=== PATIENT | male | born 1940 | race Caucasian/White ===

== ENCOUNTER 2017-02-01 07:47 | Outpatient (CLI) | payer MEDICARE, BC ==
[~2017-02-01] VITALS: Ht 180.3 cm; Wt 109.1 kg
--- NOTE | ~2017-02-01 | OP ---
PATIENT NAME: ANTONIETA UREÑA MEDICAL RECORD: [id number] :38 LOCATION:D.CAT ADMISSION DATE: SURGEON: GENEVIEVE YARBROUGH MD DATE OF OPERATION: 02/01/2017 PROCEDURES: 1. Left heart catheterization. 2. Selective coronary angiography. 3. Left ventriculogram. INDICATION: Angina and coronary artery disease. PROCEDURE IN DETAIL: After informed consent was obtained and after detailed explanation of risks, benefits as well as alternative therapies, the patient elected to proceed with angiogram and heart catheterization. The right radial area was prepped and draped in normal sterile fashion. Right radial artery was cannulated via modified Seldinger technique with placement of 6-Northern Irish sheath. All catheters exchanged through this sheath. FINDINGS: Left ventriculogram was performed in standard 30-degree SANDOVAL view, reveals good cardiac wall motion throughout all segments. Overall ejection fraction estimated at 55-60%. SELECTIVE CORONARY ANGIOGRAPHY: 1. The left main has no significant angiographic disease. 2. The left anterior descending has a long area of 80-90% stenosis proximally. The distal vessel has a good lumen suitable for grafting. 3. The left circumflex has long area of 80-90% stenosis proximally. The distal vessel has a good lumen suitable for grafting. 4. The right coronary has multiple areas of 90% blockage in the proximal and mid vessel. The distal PDA has a good lumen suitable for grafting. OVERALL IMPRESSION: Severe proximal disease of all 3 vessels with good distal targets and preserved left ventricular function. Evaluate for bypass surgery. TRANSINT:[id number] Voice Confirmation ID: [id number] DOCUMENT ID: [id number] GENEVIEVE YARBROUGH MD CC: [id number] DICTATION DATE: 02/01/17 1111 HEAD OF ACQUISITIONS: 02/01/17 1219 REG [facility] [address] [id number]
--- NOTE | ~2017-02-01 | HEMODYNAMI ---
PATIENT:ANTONIETA UREÑA MEDICAL RECORD: [id number] : 38 LOCATION:[facility] ADMISSION DATE: 02/01/17 Generatedon:02/01/201711:12 Patient name: ANTONIETA UREÑA Patient #: [id number] SSN: : 1940 Date of study: 02/01/2017 Page: Of Hemodynamic Procedure Report Patient Data Patient Demographics Procedure consent was obtained First Name: ANTONITEA Gender: Male Last Name: NIRANJAN : 1940 [facility] Initial: APRIL Age: 76 year(s) Patient #: [id number] Race: Unknown Additional ID: [id number] Contact details Address: [address] [place] [address] [address]IVE State: [place] City: [facility] Zip code: [address] Past Medical History Performed procedures and imaging results Date Procedure Procedure Results Comments 01/26/2017 Stress testing Positive->Intermediate anterior, with SPECT MPI risk mixed defect inferior Allergies Allergen Reaction Date Comments Reported Other allergy 02/01/2017 Pravastatin Admission Admission Data Admission Date: 02/01/2017 Admission Time: 7:47 Height (in.): 71 BSA: 2.28 (m2) Height (cm.): 180.34 BMI: 33.47 (kg/m2) Weight (lbs.): 240 Weight (kg.): 108.86 Lab Results Lab Result Date: 02/01/2017 Lab Result Time: 0:00 Biochemistry Name Units Result Min Max BUN mg/dl 20 --(----)*- 7 18 CK-MB ng/ml 1.6 --(-*--)-- 0 3.6 Creatinine mg/dl 0.9 --(-*--)-- 0.6 1.3 Creatinine l 80 --(-*--)-- 21 215 Kinase Troponin l ng/ml 0.017 --(-*--)-- 0 0.06 CBC Name Units Result Min Max Hemoglobin g/dl 16.3 --(--*-)-- 13.5 17.5 Procedure Procedure Types Cath Procedure Diagnostic Procedure [facility] w/Coronaries Miscellaneous Procedures Moderate Sedation up to 15 minutes Procedure Description Procedure Date Procedure Date: 02/01/2017 Procedure Start Time: 11:03 Procedure End Time: 11:11 Procedure Staff Name Function Colby Vivas MD Performing Physician Yesenia Garber RN Nurse Luis Hannah RT Monitor Memo Her RT Scrub Tesfaye Paz RN Nurse Procedure Data Cath Procedure Fluoroscopy Diagnostic fluoroscopy Total fluoroscopy Time: 2.6 time: 2.6 min min Diagnostic fluoroscopy Total fluoroscopy dose: 603 dose: 603 mGy mGy Contrast Material Contrast Material Type Amount (ml) Isovue 300 63 Entry Location Entry Primary Successful Side Size Upsize Upsize Entry Closure Flores ccessful Closure Location (Fr) 1 (Fr) 2 (Fr) Remarks Device Remarks Radial Right 6 Fr Mechanical artery Short Compression Diagnostic catheters Device Type Used For End Catheter Placement Diagnostic Terumo 5Fr LV Angiography Elrosa 110cm catheter Procedure Complications No complications Procedure Medications Medication Administration Route Dosage Oxygen NC 2 l/min Lidocaine 2% added to field 20 Heparin Flush Bag added to field 2 bags (1000units/500ml NS) 0.9% NaCl I.V. 100 ml/hr Versed I.V. 1 mg Fentanyl I.V. 50 mcg Radial Cocktail I.A. 1 syringe (Verapomil 2mg/Nitro 400mcg/Heparin 1500units) Versed I.V. 1 mg Fentanyl I.V. 50 mcg Versed I.V. 1 mg Fentanyl I.V. 50 mcg Hemodynamics Rest BSA: 2.28 (m2) HGB: 16.3 (g/dl) O2 Consumption: Estimated: 253.64 (ml/min) O2 Co nsumption indexed: Estimated:111.25 (ml/min/m) Heart Rate: 61 (bpm) Snapshots Pre Cath Intra NCS Post Cath Vital Signs Time Heart Resp SPO2 NIBP (mmHg) Rhythm Pain Sedation Rate (ipm) (%) Status Level (bpm) 10:49:58 63 17 99 140/88(128) Paced 0 (11) 10(A) , No pain 10:54:14 60 17 100 119/78(97) Paced 0 (11) 10(A) , No pain 10:58:22 60 18 97 120/74(96) Paced 0 (11) 10(A) , No pain 11:02:34 60 15 96 114/63(88) Paced 0 (11) 9(A) , No pain 11:06:40 60 15 99 116/72(99) Paced 0 (11) 9(A) , No pain 11:10:50 59 16 98 109/65(98) Paced 0 (11) 10(A) , No pain Medications Time Medication Route Dose Verified Delivered Reason Notes Effectiveness by by 10:50:07 Oxygen NC 2 l/min Colby Buffie used for Ortega Paz RN procedure 10:50:14 Lidocaine 2% added 20ml Colby Colby for local to vial Ortega Vivas MD anesthetic field 10:50:19 Heparin Flush added 2 bags Colby Bowman used for Bag to Ortega Vivas MD procedure (1000units/500ml field NS) 10:50:27 0.9% NaCl I.V. 100 Colby Buffie Per ml/hr Ortega Paz RN physician 11:00:59 Versed I.V. 1 mg Colby Conteie for sedation Ortega Paz RN 11:01:06 Fentanyl I.V. 50 mcg Colby Carlin for sedation Ortega Paz RN 11:01:19 Radial Cocktail I.A. 1 Colby Colby for (Verapomil syringe Ortega Vivas MD vasodilation 2mg/Nitro 400mcg/Heparin 1500units) 11:03:26 Versed I.V. 1 mg Colby Buffie for sedation Ortega Paz RN 11:03:30 Fentanyl I.V. 50 mcg Colby Carlin for sedation Ortega Paz RN 11:06:07 Versed I.V. 1 mg Colby Buffie for sedation Ortega Paz RN 11:06:11 Fentanyl I.V. 50 mcg Colby Buffie for sedation Ortega Paz RN Procedure Log Time Note 10:21:02 Luis Hannah RT(R) sent for patient. Start room use. 10:21:02 Time tracking: Regular hours 10:21:06 Plan of Care:Hemodynamics will remain stable., Cardiac rhythm will remain stable., Comfort level will be maintained., Respiratory function will remain adequate., Patient/ family verbilizes understanding of procedure., Procedure tolerated without complication., Recovers from procedure without complications.. 10:29:57 H&P Date Dictated: 01/13/2017 Within 30 days and on chart., H&P Addendum completed by physician on day of procedure. (MUST COMPLETE FOR ALL OUTPATIENTS). 10:30:30 Patient allergic to Other allergyPravastatin 10:37:53 Patient received from Pre/Post Procedure Room to CCL 2 Alert and oriented. Tansferred to table in Supine position. 10:37:54 Warm blankets applied, and marguerite hugger turned on for patient comfort. 10:37:54 Correct patient and procedure confirmed by team. 10:37:55 Signed procedure consent form obtained from patient. 10:37:56 ECG and BP/O2 sat monitors applied to patient. 10:48:53 Vital chart was started 10:50:07 Oxygen 2 l/min NC was administered by Tesfaye Paz RN; used for procedure; 10:50:14 Lidocaine 2% 20ml vial added to field was administered by Colby Vivas MD; for local anesthetic; 10:50:19 Heparin Flush Bag (1000units/500ml NS) 2 bags added to field was administered by Colby Vivas MD; used for procedure; 10:50:27 0.9% NaCl 100 ml/hr I.V. was administered by Tesfaye Paz RN; Per physician; 10:53:27 Baseline sample Acquired. 10:53:29 Rhythm: sinus rhythm 10:53:30 Full Disclosure recording started 10:53:31 Pre-procedure instructions explained to patient. 10:53:31 Pre-op teaching completed and patient verbalized understanding. 10:53:33 Family unavailable. 10:53:38 Patient NPO since Midnight. 10:53:40 Is the patient allergic to Iodine/contrast media? No. 10:53:42 Is patient on blood thinner?Yes 10:53:44 ACC The patient was administered the following blood thiners within the last 24 hours: ACCPlavix 10:53:46 Patient diabetic? No. 10:53:47 ----Pre-sedation anethsthesia assessment.---- 10:53:49 Previous problem with sedation/anesthesia? N/A ? 10:53:50 Previous problem with sedation/anesthesia? No ? 10:53:52 Snore? Yes 10:53:53 Sleep apnea? No 10:53:56 Deviated septum? No 10:53:58 Opens mouth fully? Yes 10:53:59 Sticks out tongue? Yes 10:54:01 Airway obstruction? No ? 10:54:02 Dentures? No ? 10:54:05 Pre procedure: right dorsailis pedis pulse 1+ Palpable, but thready & weak; easily obliterated 10:54:07 Modified Naveen's test Ulnar > 7 seconds. 10:54:09 Patient pain scale 0/10 ?. 10:54:16 IV patent on arrival in left antecubital with 0.9% NaCl at 10ml/hr. 10:55:08 Lab Result : BUN 20 mg/dl 10:55:08 Lab Result : Creatinine 0.9 mg/dl 10:55:08 Lab Result : CK-MB 1.6 ng/ml 10:55:08 Lab Result : Creatinine Kinase 80 l 10:55:08 Lab Result : Hemoglobin 16.3 g/dl 10:55:08 Lab Result : Troponin l 0.017 ng/ml 10:55:11 Lab results completed and on chart. 10:55:15 Right Radial & Right Groin area was prepped with chlora-prep and draped in sterile fashion 10:55:18 Alarms reviewed by R. N. 10:55:20 Sharps counted by scrub and verified by R.N. 10:58:41 --------ALL STOP TIME OUT------ 10:58:41 Final Timeout: patient, procedure, and site verified with staff and physician. All members of the team are in agreement. 10:58:43 Right Radial & Right Groin site verified by team. 10:58:46 Physical assessment completed. ASA score P 2 - A patient with mild systemic disease as per Colby Vivas MD. 10:58:49 Sedation plan: IV Moderate Sedation Versed, Fentanyl 10:59:05 Patient Height : 180.34 cm 10:59:08 Patient Weight : 108.86 kg 10:59:11 Use device set Radial Dx 10:59:12 Acist Syringe opened to sterile field. 10:59:13 Bag Decanter opened to sterile field. 10:59:13 Terumo 6Fr Slender Glidesheath opened to sterile field. 10:59:14 St Darryn 260cm J .035 wire opened to sterile field. 10:59:14 Acist Hand Control opened to sterile field. 10:59:14 Acist Manifold opened to sterile field. 10:59:15 Tegaderm 4 x 4 opened to sterile field. 10:59:15 MBrace Wrist Support opened to sterile field. 10:59:16 Medline Cath Pack opened to sterile field. 11:00:59 Versed 1 mg I.V. was administered by Tesfaye Paz RN; for sedation; 11:01:06 Fentanyl 50 mcg I.V. was administered by Tesfaye Paz RN; for sedation; 11:01:19 Radial Cocktail (Verapomil 2mg/Nitro 400mcg/Heparin 1500units) 1 syringe I.A. was administered by Colby Vivas MD; for vasodilation; 11:02:46 Procedure started. 11:03:04 Zero performed for pressure channel P1 11:03:17 Local anesthetic to right radial artery with Lidocaine 2% by Colby Vivas MD.INITIAL ACCESS ONLY 11:03:24 A 6 Fr Short sheath was inserted into the Right Radial artery 11:03:26 Versed 1 mg I.V. was administered by Tesfaye Paz RN; for sedation; 11:03:30 Fentanyl 50 mcg I.V. was administered by Tesfaye Paz RN; for sedation; 11:03:35 A Diagnostic Ticies 5Fr Elrosa 110cm catheter was advanced over the wire and used for LV Angiography. 11:03:39 LV angiography performed. 11:04:29 EF : 55 % 11:04:34 LV gram done using SANDOVAL 11:04:38 Injector settings: Ml/sec: 7, Volume: 15, 11:04:49 RCA angiography performed. 11:05:15 Catheter removed. 11:06:03 Cordis 6FR XBLAD 3.5 guide catheter opened to sterile field. 11:06:07 Versed 1 mg I.V. was administered by Tesfaye Paz RN; for sedation; 11:06:11 Fentanyl 50 mcg I.V. was administered by Tesfaye Paz RN; for sedation; 11:06:23 6 Fr XBLAD 3.5 guide catheter was inserted over the wire 11:06:32 LCA angiography performed. 11:07:24 Catheter removed. 11:07:30 Contrast amount:Isovue 300 63ml. 11:07:40 Sheath removed intact; hemostasis achieved with Mechanical Compression to the Right Radial artery. 11:07:50 Terumo TR Band Standard opened to sterile field. 11:07:55 Procedure ended.(Physican Out) 11:08:16 Fluoroscopy time 02.60 minutes. 11::26 Fluoroscopy dose: 603 mGy 11:: Flurop Dose total: 603 11::28 Sharps counted by scrub and verified by R.N. 11:09:30 TR band inflated with 10cc of air. 11:09:32 Insertion/operative site no bleeding no hematoma. 11:10:21 Post right radial artery:stable 11:10:23 Post Procedure Pulses reassessed and unchanged 11:10:25 Post procedure: right dorsailis pedis pulse 1+ Palpable, but thready & weak; easily obliterated. 11:10:28 Post procedure rhythm: sinus rhythm 11:10:29 Post procedure instruction explained to patient.Patient verbalizes understanding. 11:10:53 Procedure and supply charges have been captured, reviewed, submitted and are correct. 11:11:13 Procedure Complication : No complications 11:11:15 Vital chart was stopped 11:11:16 See physician's report for complete and final results. 11:11:18 Report given to Pre/Post Procedure Room. 11:11:22 Patient transfered to Pre/Post Procedure Room with Stretcher. 11:11:23 Procedure ended. 11:11:23 Full Disclosure recording stopped 11::28 End room use (Document Last) Device Usage Item Name Manufacture Quantity Catalog Hospital Part Current Minimal Lot# / Number Charge Number Stock Stock Serial# Code Acist Acist 1 31943 909321 391678 517709 20 Syringe Medical Systems Inc Bag Microtek 1 2001S 001401 66880 497129 5 Decanter [employer] Inc. Terumo 6Fr Terumo 1 [id number] 184215 149802 147722 [address] Darryn 1 471223 722624 018860 183534 30 260cm J .035 wire Acist Hand Acist 1 69200 100755 471560 046316 5 Control Medical Systems Inc Acist Acist 1 36493 888001 230363 254627 5 Manifold Medical Systems Inc Tegaderm 4 3M 1 1626W 410703 262930 032874 5 x 4 MBrace Advanced 1 140-0250-00 267064 80835 724314 5 Wrist Vascular Support Dynamics Medline Cardinal 1 [id number] 112095 64965 117419 5 Cath Pack Health Diagnostic Terumo 1 66-1906 175873 158170 510686 5 Terumo 5Fr Elrosa 110cm catheter Cordis 6FR Cardinal 1 [id number] 609030 410422 669426 10 XBLAD 3.5 Health guide catheter Terumo TR Terumo 1 [id number] 915504 309850 418057 40 Band Standard Signature Audit [place] Stage Time Signature Unsigned Intra-Procedure 02/01/2017 Luis Hannah 11:12:34 AM RT(R) Signatures Monitor : Luis Hannah RT Signature : Date : Time : [id number] [place] [address]
[2017-02-01] MEDS ORDERED: BAYER CHEWABLE81 MG PO (08:25)
[2017-02-01] MEDS ORDERED: NIASPAN500 MG PO (08:25)
[2017-02-01] MEDS ORDERED: OMEGA 3 FISH OI1 CAP PO (08:25)
[2017-02-01 08:26] VITALS: BP 126/70; Ht 180.3 cm; Wt 109.1 kg
[2017-02-01] MEDS ORDERED: ALPHAGAN 0.2%5 ML EACH EYE (08:40)
[2017-02-01] MEDS ORDERED: XALATAN 0.0052.5 ML EACH EYE (08:40)
[2017-02-01 08:46] LABS: BASOPHILS 0.4 % (0-2); EOSINOPHILS 5.7 % (0-7); HEMATOCRIT 47.3 % (42.0-54.0); HEMOGLOBIN 16.3 g/dL (13.5-17.5); LYMPHOCYTES 19.8 % (15-50); MCH 30.3 pg (26.0-34.0); MCHC 34.5 g/dL (31.0-37.0); MCV 87.9 fL (80.0-100.0); MEAN PLATELET VOLUME 9.9 fL (7.4-10.4); NEUTROPHILS 67.1 % (40-80); PLATELET COUNT 185 10x3/uL (130-400); RBC 5.38 10x6/uL (4.20-6.10); RDW 12.9 % (11.5-14.5); WBC 6.7 10x3/uL (4.8-10.8)
[2017-02-01 09:12] LABS: CALC OSMOLALITY 279 mosm/kg (275-300); CALCIUM 8.7 mg/dL (8.5-10.1); CHLORIDE - SERUM 102 mmol/L (98-107); CKMB 1.6 U/L (0.0-3.6); CREATINE KINASE 80 UL (21-232); CREATININE - SERUM 0.9 mg/dL (0.6-1.3); GLUCOSE 109 mg/dL (74-106); POTASSIUM - SERUM 4.1 mmol/L (3.5-5.1); SODIUM 138 mmol/L (136-145); UREA NITROGEN 20 mg/dL (7-18); eGFR NON AFRICAN AMERICAN 87 mL/min (90-120)
[2017-02-01 09:14] LABS: TROPONIN-I < 0.017 ng/mL (0.000-0.060)
--- NOTE | 2017-02-01 11:39 | NUR ---
1130 RECEIVED PT FROM [employer] ADMINISTRATOR, PT IS SLEEPY, AWAKENS EASILY AND DENIES ANY C/O. TR BAND CDI TO RIGHT WRIST. FINGERS WARM, CAP REFILL IS BRISK. NO FAMILY AT BEDSIDE. CALL LIGHT IN REACH.
--- NOTE | 2017-02-01 11:50 | NUR ---
1145 TR BAND CDI, NO BLEEDING OR HEMATOMA NOTED. PT DENIES ANY C/O. AT BEDSIDE. CALL LIGHT IN REACH. 1150 SHANAE MCCLURE RN HERE ROUNDING ON PT FOR DR AGRAWAL.
--- NOTE | 2017-02-01 12:20 | NUR ---
1210 2 CC OF AIR REMOVED FROM TR BAND WITH NO BLEEDING OR HEMATOMA NOTED.
--- NOTE | 2017-02-01 12:39 | NUR ---
2 CC AIR REMOVED FROM TR BAND WITH NO BLEEDING NO HEMATOMA NOTED WILL MONITOR
--- NOTE | 2017-02-01 13:54 | NUR ---
1300 TR BAND HAS BEEN REMOVED AND 2X2 GAUZE/TEGADERM APPLIED. NO BLEEDING OR HEMATOMA NOTED AT SITE. IV DC'D WITH CATH INTACT AND PT IS DRESSING FOR DC TO HOME. 1320 REVIEWED DC INSTRUCTIONS WITH PT AND WHO VERBALIZE UNDERSTANDING. WRITTEN COPIES PROVIDED. PT DENIES ANY C/O UPON DC. PT ESCORTED TO PRIVATE AUTO VIA WC BY STAFF WITH DRIVING HIM HOME.
== END 2017-02-01 13:20 | disposition home or self-care (01) ==
LOC: D.CATH 07:47
PROVIDERS: Internal Medicine Interventional Cardiology
DX: I65.23 Occlusion and stenosis of bilateral carotid arteries (principal); Z01.812 Encounter for preprocedural laboratory examination

== ENCOUNTER → 2017-02-03 14:48 | Outpatient (CLI) | payer MEDICARE, BC ==
[2017-02-01 08:26] VITALS: BMI 33.5
[~2017-02-03 14:48] MED LIST: ALPHAGAN 0.2%5 ML EACH EYE; BAYER CHEWABLE81 MG PO; NIASPAN500 MG PO; OMEGA 3 FISH OI1 CAP PO; XALATAN 0.0052.5 ML EACH EYE
== END | disposition home or self-care (01) ==
LOC: D.LAB 14:45 → D.US 15:00
DX: I65.23 Occlusion and stenosis of bilateral carotid arteries (principal); Z01.812 Encounter for preprocedural laboratory examination

== ENCOUNTER → 2017-02-08 08:10 | Outpatient (CLI) | payer MEDICARE, BC ==
[2017-02-01 08:26] VITALS: BMI 33.5
== END | disposition home or self-care (01) ==
LOC: D.CT 08:10
DX: I65.23 Occlusion and stenosis of bilateral carotid arteries (principal)

== ENCOUNTER 2017-02-17 05:47 | Inpatient (IN) | payer MEDICARE, BC ==
[2017-02-12 11:09] LABS: BASOPHILS 0.6 % (0-2); EOSINOPHILS 4.5 % (0-7); HEMOGLOBIN 15.8 g/dL (13.5-17.5); IMMATURE GRANULOCYTES 0.3 % (0-5); LYMPHOCYTES 20.2 % (15-50); MCH 30.2 pg (26.0-34.0); MCHC 34.3 g/dL (31.0-37.0); MCV 87.8 fL (80.0-100.0); MEAN PLATELET VOLUME 9.7 fL (7.4-10.4); MONOCYTES 6.5 % (2-11); NEUTROPHILS 67.9 % (40-80); PLATELET COUNT 185 10x3/uL (130-400); RBC 5.24 10x6/uL (4.20-6.10); WBC 6.9 10x3/uL (4.8-10.8)
[2017-02-12 11:25] LABS: APTT 29.1 SECONDS (22.8-39.4); PROTIME 13.1 SECONDS (11.6-15.0)
[2017-02-12 11:41] LABS: ALBUMIN 4.2 g/dL (3.4-5.0); ALKALINE PHOSPHATASE 74 U/L (46-116); ALT (SGPT) 29 U/L (10-68); CALC OSMOLALITY 278 mosm/kg (275-300); CALCIUM 8.8 mg/dL (8.5-10.1); CARBON DIOXIDE 24.4 mmol/L (21.0-32.0); CHLORIDE - SERUM 105 mmol/L (98-107); CHOLESTEROL, TOTAL 205 mg/dL (0-200); CREATININE - SERUM 0.9 mg/dL (0.6-1.3); GLUCOSE 87 mg/dL (74-106); PHOSPHOROUS 3.5 mg/dL (2.5-4.9); POTASSIUM - SERUM 4.1 mmol/L (3.5-5.1); PROTEIN - SERUM 7.6 g/dL (6.4-8.2); SODIUM 139 mmol/L (136-145); T4 THYROXIN - FREE 0.84 ng/dL (0.76-1.46); THYROID STIMULATING HORMONE 3.76 uIU/mL (0.36-3.74); UREA NITROGEN 19 mg/dL (7-18); URIC ACID 6.4 mg/dL (2.6-7.2); eGFR NON AFRICAN AMERICAN 87 mL/min (90-120)
[2017-02-12 12:15] LABS: APPEARANCE HAZY (CLEAR); BILIRUBIN NEGATIVE (NEGATIVE); COLOR YELLOW (YELLOW); EPITHELIAL CELLS RARE /hpf (0-5); GLUCOSE NEGATIVE (NEGATIVE); KETONE NEGATIVE (NEGATIVE); LEUKOCYTE ESTERASE TRACE (NEGATIVE); NITRITE NEGATIVE (NEGATIVE); PROTEIN NEGATIVE (NEGATIVE); SPECIFIC GRAVITY 1.015 (1.005-1.020); UROBILINOGEN NORMAL (NORMAL); WHITE CELLS - URINE OCC /hpf (0-5)
[2017-02-12 12:16] LABS: BACTERIA FEW /hpf (NONE SEEN); MUCUS <1+ /lpf (NONE SEEN)
[2017-02-12 12:19] LABS: HEMOGLOBIN A1C 5.4 % (4.8-6.0)
[2017-02-12 12:57] LABS: COLD SCREEN @ 4 DEGREES 1+ (NEGATIVE); COLD SCREEN ROOM TEMP NEGATIVE (NEGATIVE)
--- NOTE | 2017-02-13 12:31 | HP ---
PATIENT: ANTONIETA UREÑA MEDICAL RECORD: [id number] ACCOUNT: [id number] LOCATION:[facility] : 39 ADMISSION DATE: 02/17/17 HISTORY AND PHYSICAL EXAMINATION ANTONIETA Calzada (76yo, M) ID# [id number]. Date/Time02/03/2017 01:[id number] 1940Service Dept.[facility] ClinicProviderEDNIURKA AGRAWAL MDInsuranceMed Primary: [place] (MEDICARE) Insurance # : [id number] Referring Provider Name : JOSE JONES Employer Name : [employer] Med Secondary: [place] (MEDICARE SUPPLEMENT) Insurance # : [id number] Referring Provider Name : JOSE JONES Employer Name : [employer] Prescription: [employer] - This member could not be found in the payer's files. Please verify coverage and all member demographic information. Chief Complaint Coronary artery disease evaluate for CABG Patient's Care Team Referring Provider (): JOSE JONES: [address] [place] [phone], , Sales Special Agent: GENEVIEVE YARBROUGH MD: [address] [place] [phone], , Patient's Pharmacies [facility] (ERX): [address] [place] [phone], , Vitals BP:120/70 sitting R arm 02/03/2017 01:14 pm 118/60 sitting L arm 02/03/2017 01:15 pmBP Cuff Size:adult 02/03/2017 01:14 pm adult 02/03/2017 01:15 pmHR:76,reg 02/03/2017 01:15 pmHt:5 ft 11 in 02/03/2017 01:15 pmWt:236 lbs 02/03/2017 01:15 pmNotes:no complaint of chest pain, but has been taking it pretty easy 02/03/2017 01:16 pmBMI:32.9 02/03/2017 01:15 pmAllergies Reviewed Allergies PRAVACHOL: Arthralgia (joint pain)Medications Reviewed Medications Aspir-81 one daily02/01/17 [facility] Juanbrimonidine 0.2 % eye drops INSTILL 1 DROP INTO AFFECTED EYE(S) BY OPHTHALMIC ROUTE EVERY 8 HOURS02/01/17 [facility] drops INSTILL 1 DROP INTO AFFECTED EYE(S) BY OPHTHALMIC ROUTE ONCE DAILY INTHE HQLBQUO46/19/17 [facility] JuanNiacin (niacinamide) 500 mg tablet Take 1 tablet(s) 3 times a day by oral route.02/01/17 [facility] JuanProblems Reviewed Problems Coronary arteriosclerosis in [place] artery - Onset: 02/03/2017 Coronary arteriosclerosis - Onset: 02/01/2017 Family History Discussed Family History Father- Heart disease - Malignant neoplastic diseaseMother- Malignant neoplastic diseaseSocial History Discussed Social History Cardiology HISTORY AND PHYSICAL [id number] ANTONIETA UREÑA Smoking Status: Never smoker High Cholesterol: Y High blood pressure: Y Overweight: Y Diabetes: N Alcohol intake: Occasional Occupation: retired Surgical History Reviewed Surgical History Total hip arthroplasty repair compound fracture leg 1999 Past Medical History Discussed Past Medical History Arrhythmia: Y - pacemaker Chest Pain: Y Eye Problems: Y Hyperlipidemia: Y Hypertension: Y Shortness of Breath: Y Documents for Discussion N/A Screening None recorded. HPI Coronary Artery Disease F/U Reported by patient. Severity: no chest discomfort with daily activities Context: non-smoker Associated Symptoms: no chest pain; no neck pain; no left arm pain; no dyspnea with exertion; no sweating; no nausea; no stress currently atherosclerosis with angina pectoris ROS Patient reports exercise intolerance but reports no fever, no night sweats, no significant weight gain, and no significant weight loss; exertional angina. He reports chest pain on exertion, arm pain on exertion, and shortness of breath when walking but reports no shortness of breath when lying down, no palpitations, and no known heart murmur. He reports shortness of breath but reports no cough, no wheezing, and no coughing up blood. He reports no dry eyes, no irritation, and no vision change. He reports no difficulty hearing and no ear pain. He reports no frequent nosebleeds and no nose/sinus problems. He reports no sore throat, no bleeding gums, no snoring, no dry mouth, no mouth ulcers, no oral abnormalities, and no teeth problems. He reports no jugular vein distension and no swollen glands. He reports no abdominal pain, no vomiting, normal appetite, no diarrhea, not vomiting blood, no nausea, and no constipat i on. He reports no incontinence, no difficulty urinating, no hematuria, and no increased frequency. He reports no muscle aches, no muscle weakness, no arthralgias/joint pain, no back pain, and no swelling in the extremities. He reports no abnormal mole, no jaundice, and no rashes. He reports no loss of consciousness, no weakness, no numbness, no seizures, no dizziness, and no headaches. He reports no depression, no sleep disturbances, feeling safe in relationship, and no alcohol abuse. He reports no fatigue . He reports no swollen glands and no bruising. He reports no runny nose, no sinus pressure, no itching, no hives, and no frequent sneezing. ROS as noted in the HPI HISTORY AND PHYSICAL [id number] ANTONIETA UREÑA Physical Exam Patient is a 76-year-old male. Constitutional: General Appearance well nourished and developed and healthy-appearing. Level of Distress NAD. Ambulation ambulating normally. Cardiovascular: Apical Impulse not displaced or no thrill. Heart Auscultation normal s1 and s2; no murmurs, rubs, or gallops; and RRR. Arterial Pulses no abdo adams aorta bruits, femoral bruits, or popliteal bruits and 2+ bilateral, carotid 2+ bilateral, femoral 2+ bilateral, popliteal 2+ bilateral, and dorsalis pedis 2+ bilateral. Edema no edema or varicosities. Lungs: Repiratory Effort no dyspnea. Percussion no hyperresonance or dullness or flatness. Auscultation no wheezing, rhonchi, or rales / crackles and breathing sounds normal, good air movement, and CTA except as noted. Abdomen: Bowl Sounds normal. Inspection and Palpation no tenderness, guarding, elizabeth s, or rebound tenderness and soft and non-distended. Liver non-tender and no hepatomegaly. Spleen non-tender and no splenomegaly. Hernia none palpable. Musculoskeletal System: Gait And Stance normal gait and stance. Digits and Nails normal nails and no cyanosis. Neurologic: Cranial Nerves grossly intact. Reflexes DTRs 2+ bilaterally throughout. Sensation grossly intact. Lymph Nodes: Lymph Nodes no cervical LAD, supraclavicular LAD, axillary LAD, or inguinal LAD. Eyes: Lids and Conjunctivae no discharge or pallor and non-injected. Pupils PERRLA. Cornea grossly intact. EOM EOMI. Lens clear. Sclerae non-icteric. Neck: Neck no masses, enlarged lymph nodes, or carotid bruits and supple and trachea midline. Thyroid no enlargement or nodules and non-tender. Skin: Inspection and Palpation no rash, lesions, ulcers, jaundice, or abnormal nevi. Assessment / Plan angina pectoris secondary to coronary atherosclerosis 1. Coronary arteriosclerosis I25.118: Atherosclerotic heart disease of [place] coronary artery with other forms of angina pectoris Discussion Notes severe occlusive coronary artery disease with angina pectoris. Discussed his disease process with him and his in detail as well as the alternative methods of treatment. We discussed coronary artery byp ass including the expected benefits and risks which include bleeding, infection, stroke, loss of limb, and the imponderables. He understands all of the above and wishes to proceed with planned surgery. Schedule carotid Dopplers and surgery February 17 HISTORY AND PHYSICAL [id number] ANTONIETA UREÑA EDWARD MD at 1231 CC: [id number] DICTATION DATE: 02/03/17 1315 UNDERGROUND TRUCK OPERATOR: CLOTILDE 02/09/17 [address] [place] [address]
[2017-02-17] VITALS (36 sets, daily range): BP systolic 95–128; BP diastolic 40–84; BMI 33.6; BMI 33.5
[~2017-02-17] VITALS: Ht 180.3 cm; Wt 113.8 kg
[2017-02-17 07:44] LABS: PLT FUNCT.(P2Y12) PLAVIX 209 PRU (194-418)
[2017-02-17 14:51] LABS: HEMOGLOBIN 10.5 g/dL (13.5-17.5); MCH 30.4 pg (26.0-34.0); RBC 3.45 10x6/uL (4.20-6.10); RDW 12.9 % (11.5-14.5); WBC 19.2 10x3/uL (4.8-10.8)
[2017-02-17 15:06] LABS: APTT 41.7 SECONDS (22.8-39.4); INR 1.73 (0.85-1.17); PROTIME 20.2 SECONDS (11.6-15.0)
[2017-02-17 15:14] LABS: CHLORIDE - SERUM 113 mmol/L (98-107); CREATININE - SERUM 0.7 mg/dL (0.6-1.3); POTASSIUM - SERUM 3.6 mmol/L (3.5-5.1); SODIUM 146 mmol/L (136-145); UREA NITROGEN 13 mg/dL (7-18); eGFR NON AFRICAN AMERICAN > 90 mL/min (90-120)
[2017-02-17 15:15] LABS: CALC OSMOLALITY 293 mosm/kg (275-300); GLUCOSE 152 mg/dL (74-106)
[2017-02-17 15:16] LABS: CALCIUM 6.2 mg/dL (8.5-10.1)
--- NOTE | 2017-02-17 15:31 | NUR ---
PT ARRIVED TO ROOM VIA BED FROM OR. CONNECTED TO ICU MONITORS. FULL ASSESSMENT COMPLETE PER FLOWSHEET. REFER FOR DETAILS. 1:1 CARE.
--- NOTE | 2017-02-17 16:00 | NUR ---
AT BEDSIDE. UPDATE PROVIDED PER DR. AGRAWAL. 'S NUMBER RECIEVED AND PROVIDED WITH NURSES STATION NUMBER ALONG WITH PT'S ROOM PHONE NUMBER. INSTRUCTED TO CALL AT ANYTIME. CALL IN CODE SET UP.
--- NOTE | 2017-02-17 16:07 | NUR ---
GASES DRAWN. K+, CA+, AND BICARB TREATED.
--- NOTE | 2017-02-17 17:00 | NUR ---
ORAL CARE PROVIDED. REORIENTED TO PLACE AND TIME. PT WAKING UP FROM SEDATION AND ABLE TO SHAKE HEAD YES AND NO WHEN ASKED QUESTIONS. RESTING QUIETLY AT THIS TIME. WILL CONTINUE TO ASSESS FOR CHANGES.
--- NOTE | 2017-02-17 19:12 | NUR ---
REPORT RECIEVED ASSESSMENT COMPLETE PER FLOW SHEET. PT RESPONDS TO VERBAL STIMULI RESTING COMFORTABLY. EYES PERRLA 3MM BRISK. O2 VIA VENT 40% RR 18 CPAP PEEP 5 PRESSURE SUPPORT OF 10 TV 700 O2 SAT 100%. BILAT LUNGS CLEAR. OGT TO LIS CLEAR BILE NOTED BS HYPO ACTIE X4. HEART S1S2 HR 100 PACED TPM PATENT DRSG CDI DDD 100 AV INTERVAL 140 AMA VMA 10 A SENSITIVITY 0.5 V SENSITIVITY 2.0 MIDSTERNAL DRSG CDI SUBSTERNAL DRSG CDI CT X3 NOTED TO 20 CM SUCTION NO AIR LEAK NOTED BLOODY DRAINAGE NOTED. R RADIAL A LINE PATENT WITH GOOD WAVEFORM BP 121/61 EXTREMTY PINK WITH GOOD SENSATION WRIST PROTECTOR ON. BILAT WRIST RESTRAINTS ON. R IJ SWAN ANDREA NOTED AT 50 CM LOCKED AND SECURED DRSG CDI PATENT. L SUBCLAVIAN DL CVL PATENT DRSG CDI. REFER TO INFUSION FLOW SHEET. BANSAL PATENT LOURDES URINE NOTED. BILAT PEDAL PULSES PALP +2. R LEG DRSG CDI. FINESSE X2 NOTED COMPRESSED BLOODY DRAINAGE NOTED. L LEG GUANACO AND SCD ON. VSS WILL CONTINUE TO MONITOR
--- NOTE | 2017-02-17 20:20 | NUR ---
PT EXTUBATED PER PROTOCOL. VSS RESTRAINTS REMOVED WILL CONTINUE TO MONITOR
--- NOTE | 2017-02-17 20:30 | NUR ---
K+ 3.2 TX PER PROTOCOL. VSS NO FURTHER NEW CHANGES.
--- NOTE | 2017-02-17 21:36 | NUR ---
NO VISITORS AT THIS TIME. VSS. WILL CONTINUE TO MONITOR
--- NOTE | 2017-02-17 22:43 | NUR ---
SERUM K DRAWN AWAITING PENDING RESULTS.
--- NOTE | 2017-02-17 23:16 | NUR ---
REASSESSMENT COMPLETE PER FLOW SHEET. VSS. NO NEW CHANGES. GIVGEN ICE WATER PER REQUEST. NURSE AT BEDSIDE.
--- NOTE | 2017-02-17 23:50 | NUR ---
K+ READ BACK 3.7 WILL TX PER PROTOCOL. NO NEW CHANGES.
[2017-02-18] VITALS (96 sets, daily range): BP systolic 86–124; BP diastolic 35–67; Ht 180.3 cm; Wt 113.8 kg
--- NOTE | 2017-02-18 01:00 | NUR ---
ABGS READ. CA+ TX PER PROTOCOL. WILL RECHECK SERUM K+ POST INFUSION.
--- NOTE | 2017-02-18 03:16 | NUR ---
REASSESSMENT COMPLETE PER FLOW SHEET. VSS. NO NEW CHANGES. WILL CONTINUE TO MONITOR
--- NOTE | 2017-02-18 05:40 | NUR ---
TPM WIRE SITE/CT SITE X3 DRSG CHANGE COMPLETE. NO NEW FINDINGS.
[2017-02-18 06:09] LABS: MCH 30.2 pg (26.0-34.0); MCHC 34.3 g/dL (31.0-37.0); MCV 87.9 fL (80.0-100.0); MEAN PLATELET VOLUME 9.2 fL (7.4-10.4); RDW 13.4 % (11.5-14.5); WBC 15.4 10x3/uL (4.8-10.8)
[2017-02-18 06:10] LABS: HEMATOCRIT 23.3 % (42.0-54.0); RBC 2.65 10x6/uL (4.20-6.10)
[2017-02-18 06:24] LABS: ALBUMIN 3.4 g/dL (3.4-5.0); ANION GAP 13.4 mmol/L (8-16); BILIRUBIN - TOTAL 0.98 mg/dL (0.2-1.3); CARBON DIOXIDE 25.8 mmol/L (21.0-32.0); POTASSIUM - SERUM 4.2 mmol/L (3.5-5.1); PROTEIN - SERUM 5.4 g/dL (6.4-8.2)
[2017-02-18 06:29] LABS: CALCIUM 7.8 mg/dL (8.5-10.1); CREATININE - SERUM 1.2 mg/dL (0.6-1.3)
--- NOTE | 2017-02-18 07:30 | NUR ---
RECEIVED PT FOR CARE. PT RESTING IN BED. CALL LIGHT AND CHILDREN'S LIBRARIAN BUTTON WITHIN REACH. VSS AT THIS TIME.
--- NOTE | 2017-02-18 09:00 | NUR ---
PT'S AT BEDSIDE. UPDATED ON PT'S STATUS. NO OTHER NEEDS AT THIS TIME.
--- NOTE | 2017-02-18 11:00 | NUR ---
PT HAD COMPLETE BATH AND LINEN CHANGE. TOLERATED WELL. DRESSINGS TO RIGHT LEG CHANGED PER MD ORDERS. VSS AT THIS TIME. FLIGHT KITCHEN MANAGER BUTTON WITHIN REACH.
--- NOTE | 2017-02-18 13:10 | NUR ---
PT TOLERATING WATER AND ICE CHIPS. DENIES ANY NAUSEA AT THIS TIME.
--- NOTE | 2017-02-18 15:04 | NUR ---
PT'S FAMILY AT BEDSIDE. UPDATED ON PT'S STATUS.
--- NOTE | 2017-02-18 15:29 | NUR ---
DR. AGRAWAL AT BEDSIDE. UPDATED PT AND PT'S ON PLAN OF CARE. TMP TURNED OFF BY DR. AGRAWAL. PT'S HR 87. V-PACED.
[2017-02-18 15:43] LABS: HEMATOCRIT 22.3 % (42.0-54.0)
[2017-02-18 15:44] LABS: HEMOGLOBIN 7.5 g/dL (13.5-17.5)
--- NOTE | 2017-02-18 18:33 | NUR ---
ORAL CARE DONE
--- NOTE | 2017-02-18 19:00 | NUR ---
1900: Pt rec'd resting HOB 30 degrees with eyes open. Pupils BABATUNDE+ bilat. Pt LOCx3 alert and oriented. Pt c/o incisional pain that is increased with coughing and movement. 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 Breathing 024LNC with [id number] with SPO2 91%. Respirations shallow and encouraged DBC. Pt has weak effort with cough. IS done with max TV 750cc achieved. Lungs clear bilat with decreased bases bilat with auscultation. MMP and no cyanosis noted. Pt S1S2 regular Paced rhythm on CM. Right radial ART line with armboard support intact and transduced to CM with proper wf. Midline sternal dressing intact with no s/s of bleeding noted. Distal portion of dressing with TPM wires taped intact (TPM off at this time) and x3 pericardial drain tubes taped intact as well. Pericardial drains to Atrium collection systems with 20cm sx. No air leaks detected and output per I/O. Right lower extrem with multiple incision sites with dressings intact. Distal portion of dressing with x2 FINESSE drain to bulb sx. Proximal and Distal JPs with scant output. PPP and regular bilat. ABD soft NT BSx4 Hypoactive. Criticore catheter intact with dark yellow UOP >30 cc/hr draining. TEDs and left lower extrem SCD intact. Right [place] Reji catheter 50cm transduced to CM with Proximal injectate = CVP, PA distal = PA, and Proximal infusion with Dopamine and Plasmalyte infusions, Cordis with NS and Insulin gtts as per IV flow sheet. Left DLSC CDi with NS Buretrol 10 cc/hr and MS04 UTILITY SYSTEM REPAIRER 08/25/23 with UTILITY SYSTEM REPAIRER button in pts hand and verbalized usage. All alarms on and audible. SR up x2, call light in reach, Nursing remains 1:1, and Bed alarm audible.
--- NOTE | 2017-02-18 20:00 | NUR ---
2000: Mtz care completed at this time with provided catheter wipes.
--- NOTE | 2017-02-18 20:30 | NUR ---
2030: FSBS continues <150. Insulin gtt titrated to 0.5 Units/hr. No change in other IVF/UOP.
--- NOTE | 2017-02-18 20:50 | NUR ---
2049: Pt SPO2 decreased 89-90%. Encouraged DBC. Pt with weak cough attempt. Is done with max TV 750cc achieved. Pt states "it hurts too much." Pt sitting HOB 30 degrees. Increased FIO2 to 5L per NC at this time.
--- NOTE | 2017-02-18 21:00 | NUR ---
2100: Pt family here at bedside. Update provided and verbalized understanding. Family encouraged pt to DBC and Pt completed x5 IS with max TV 750cc achieved.
--- NOTE | 2017-02-18 22:30 | NUR ---
2230: Pt ABG completed and reviewed. Serum H/H checked. BT with NS connected to left DLSC in prep for PRBC admin at this time.
[2017-02-18 22:44] LABS: HEMATOCRIT 20.7 % (42.0-54.0)
[2017-02-19] VITALS (46 sets, daily range): BP systolic 90–129; BP diastolic 42–68
--- NOTE | 2017-02-19 | NUR ---
0000: PRBC started to left DLSC with BT and NS.
--- NOTE | 2017-02-19 00:25 | NUR ---
0025: Pt repositioned for comfort on right side at this time. Pt c/o incisional pain and is increased with movement and coughing. MS04 MIXER FOAM RUBBER button in pt hand and demonstrated use. Pt remains on 025LNC with [id number] with SPO2 91-95% (Increased while resting) Encouraged DBC. Pt with weak effort on cough. No change in IVF/UOP at this time. Pt remains Paced on CM 80's with SBP 90's. PRBC infusing with no s/s of rx noted.
--- NOTE | 2017-02-19 00:45 | NUR ---
0045: 1st unit of PRBC completed without rx. 2nd unit of PRBC began at this time.
--- NOTE | 2017-02-19 02:35 | NUR ---
0235: Pt sitting HOB 45 degrees with strong productive cough at this time. Pt phlegm is white/clear in color. Encouraged DBC and pillow splint to chest. Pt remains on 025LNC with RR20x with SPO2 94%.
--- NOTE | 2017-02-19 03:00 | NUR ---
0300: Dopamine off at this time. Pt remains Paced on CM with SBP 120-130 per right radial art line. No other changes in IVF.
--- NOTE | 2017-02-19 03:45 | NUR ---
0345: IS done with max TV 1000cc though avg 500-600cc. Encouraged DBC. Pt with strong cough at this time. Pt states that it is getting easier to DBC. Pt uses pillow splint with cough.
--- NOTE | 2017-02-19 04:30 | NUR ---
0430: Pt continues with DBC and SPO2 increased to 96%. Decreased FIO2 to 024LNC at this time.
--- NOTE | 2017-02-19 05:30 | NUR ---
0530: No change in pt RESP/CV/NV status. Repositioned for comfort at this time. No change in IVF/UOP. Pt HOb 50 degrees at this time. Pt has strong productive cough. Remains 024LNC with OD68-23a with SPO2 94%.
[2017-02-19 06:05] LABS: HEMATOCRIT 25.6 % (42.0-54.0); HEMOGLOBIN 8.9 g/dL (13.5-17.5); MCH 30.4 pg (26.0-34.0); MCHC 34.8 g/dL (31.0-37.0); MCV 87.4 fL (80.0-100.0); MEAN PLATELET VOLUME 9.5 fL (7.4-10.4); RBC 2.93 10x6/uL (4.20-6.10); RDW 14.2 % (11.5-14.5); WBC 13.1 10x3/uL (4.8-10.8)
[2017-02-19 06:14] LABS: ALBUMIN 2.8 g/dL (3.4-5.0); ANION GAP 11.1 mmol/L (8-16); BILIRUBIN - TOTAL 1.73 mg/dL (0.2-1.3); CALCIUM 7.9 mg/dL (8.5-10.1); CARBON DIOXIDE 25.2 mmol/L (21.0-32.0); CREATININE - SERUM 1.3 mg/dL (0.6-1.3); POTASSIUM - SERUM 4.3 mmol/L (3.5-5.1); PROTEIN - SERUM 5.3 g/dL (6.4-8.2)
--- NOTE | 2017-02-19 07:30 | NUR ---
REPORT RECIEVED FROM PHARMACY CLINICAL COORDINATOR NURSE. PT RESTING IN BED QUIETLY. NO S/SX OF ACUTE DISTRESS NOTED AT THIS TIME. VSS. FULL ASSESSMENT COMPELTE PER FLOWSHEET. REFER FOR DETAILS. WILL CONT 1:1 CARE.
--- NOTE | 2017-02-19 08:17 | NUR ---
ORAL CARE DONE WITH PERIDEX
--- NOTE | 2017-02-19 09:00 | NUR ---
ALL LINES AND DRAINS PULLED PER ORDERS. TOLERATED WELL. BED BATH AND LINEN CHANGE PROVIDED. CALL LIGHT PLACED IN REACH.
--- NOTE | 2017-02-19 09:45 | NUR ---
ASSISTED UP OOB TO RECLINER WITH ASSISTANCE OF PT. MODERATE ASSIST REQUIRED.
--- NOTE | 2017-02-19 10:09 | TEE ---
PATIENT:ANTONIETA UREÑA MEDICAL RECORD: [id number] LOCATION:[place] [address] AGE OF PATIENT: 76 ADMISSION DATE: 02/17/17 SEX: M REFERRING PHYSICIAN: INTERPRETING PHYSICIAN: GENEVIEVE IVVAS MD TRANSESOPHAGEAL ECHOCARDIOGRAM TATIANNA CHARGE Y INDICATIONS: CABG PREMEDICATIONS: PATIENT'S RESPONSE PROCEDURE DOPPLER MEASUREMENTS: LVIT LA PA RA LVOT RVOT Asc. Ao AV Gradient Peak AV Mean AV Area MV Gradient Peak MV Mean MV Area INTERPRETATION: LVd: 4.2 cm LVs: 2.6 cm Doppler: 2-D: COLOR FLOW DOPPLER NORMAL SALINE STUDY: MISCELLANOUS: DIAGNOSIS: PLAN: Aged Or Disabled Care Worker:1 Dr. Vivas Electrician Office: [facility] HYDE COMMENTS: TRANSESOPHAGEAL ECHOCARDIOGRAM EVALUATION OF VALVULAR STRUCTURES DURING BYPASS SURGERY 1. Left ventricular chamber size is within normal limits. Left ventricular systolic function is normal. Overall ejection fraction is estimated at 55 percent. 2. Left atrium, right atrium, and right ventricular chamber sizes are within normal limits. 3. Valvular structures have normal structure and motion. 4. Doppler interrogation only reveals trace mitral regurgitation, trace tricuspid TRANSESOPHAGEAL ECHOCARDIOGRAM REPORT [id number] ANTONIETA UREÑA regurgitation; no other valvular insufficiency or stenosis. These are not hemodynamically significant. 5. No evidence of pericardial effusion or left ventricular thrombus. at 1009 CC: [id number] DICTATION DATE: 02/17/17 1200 GIFT BASKET PACKER: CLOTILDE 02/17/17 1852 ADM IN [facility] [address] [place] [address]
--- NOTE | 2017-02-19 11:00 | NUR ---
VOIDED 400CC OF LOURDES COLORED URINE POST BANSAL REMOVAL. WILL CONT TO ASSESS OUTPUT.
--- NOTE | 2017-02-19 11:02 | NUR ---
* Is the patient Alert and Oriented? Yes 0 * How many steps to enter\exit or inside your home? 0 0 * PCP Dr. Nilesh Funk 0 * Pharmacy [facility] 0 * Preadmission Environment Home with Family 0 * ADLs Independent 0 * List name and contact numbers for known caregivers / representatives who currently or will assist patient after discharge: Spouse - Miryam [phone] 0 * Additional services required to return to the preadmission environment? No 0 * Can the patient safely return to the preadmission environment? Yes 0 * Has this patient been hospitalized within the prior 30 days at any hospital? 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 They live together in a single level home. Prior to admission, patient was independent with all ADL's & IADL's. 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 He has had home health services in the past following hip surgery about 10 years ago. At dc, he will return home with his . No needs identified or verbalized at this time. CM will follow & assist as needed. Wire Bender: Rosemary Tidwell
--- NOTE | 2017-02-19 12:00 | NUR ---
STATES HE IS HAVING A HARD TIME USING HIS HANDS DUE TO SWELLING. IV LASIX WAS ADMINISTERED THIS AM. LUNCH TRAY PLACED ON BST. BELONGINGS PLACED IN REACH.
--- NOTE | 2017-02-19 12:15 | NUR ---
DAUGHTER AT BEDSIDE. UPDATE PROVIDED.
--- NOTE | 2017-02-19 15:00 | NUR ---
AT BEDSIDE. UPDATE PROVIDED. REASSESSMENT COMPLETE. NO CHANGES NOTED AT THIS TIME. WILL CONT ASSESS FOR CHANGES.
--- NOTE | 2017-02-19 17:00 | NUR ---
IS COMPLETED 10X. 750-1000 WAS PULLED ON USING IS.
--- NOTE | 2017-02-19 20:00 | NUR ---
2000: Pt rec'd resting HOB 30 degrees with eyes open. Pupils BABATUNDE+ bilat. 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 Pt moves x4 extrem vs gravity. Pt c/o soreness and pain with coughing, but states better than yesterday. Pt breathing shallow RR20x with SPO2 92% with 023LNC at this time. Encouraged DBC and IS done with max TV 750cc achieved with maximal encouragement. Lungs decreased in based bilaterally with auscultation. MMP and no cyanosis noted. S1S2 regular and pt showing Paced on CM 70's. PPPx4=bilat. Pt has midline chest incision with dressing intact. Distal portion of dressing/epigastric area with TPM wires taped intact. TPM attached and fx'ing, but remains off at this time. Pt has PPM. LDLSC saline locked at this time. ABD soft NT BS hypoactive x4. Pt states he is passing gas. Pt denies diffculty with elimination. Right lower extrem dressings intact with no s/s of bleeding, oozing, or swelling. SR up x2, call light in reach and pt demonstrated use. Bed alarm and audible.
--- NOTE | 2017-02-19 22:30 | NUR ---
2230: IS done with max TV 750cc achieved. Pt avg around 600cc though. Encouraged DBC. Pt with strong productive cough with white/clear sputum expectorated. Pt remains shallow respirations [id number] with SPO2 90% at times.
[2017-02-20] VITALS (21 sets, daily range): BP systolic 86–123; BP diastolic 41–64
--- NOTE | 2017-02-20 | NUR ---
0000: Pt resting in bed with eyes closed at this time. Pt remains Paced on CM 70's with SBP 100's. Pt has periods of decreased SPO2. Continue to encourage DBC and IS. Pt still only able to max TV of 750cc with maximal encouragment. FIO2 titrated to keep SPO2 >92%. Will continue to perform IS and DBC.
--- NOTE | 2017-02-20 03:15 | NUR ---
0315: Pt awake at this time. Encouraged DBC and IS. Is done with max TV 750cc achieved. Pt remains on 024LNC at this time with SPO2 94%. Pt remains Paced on CM (PPM) with SBP 90's. No change in IVF/UOP. No bleeding seen from dressings.
--- NOTE | 2017-02-20 04:30 | NUR ---
0430: Pt to radiology for PA/LAT. Pt transported with WC and 02. Pt required only moderate assistance with standing and gait. Pt returned to room and placed in chair at this time. Complete linen change done. Pt remains Paced on CM 80 with SBP 108. Pt breathing 20x with SPO2 92% with 024LNC.
[2017-02-20 05:45] LABS: HEMATOCRIT 23.7 % (42.0-54.0); HEMOGLOBIN 8.2 g/dL (13.5-17.5); MCH 30.6 pg (26.0-34.0); MCHC 34.6 g/dL (31.0-37.0); MCV 88.4 fL (80.0-100.0); RBC 2.68 10x6/uL (4.20-6.10); RDW 14.3 % (11.5-14.5); WBC 13.4 10x3/uL (4.8-10.8)
--- NOTE | 2017-02-20 05:58 | NUR ---
0600: Pt remains up in chair at this time. Pt breathing 024LNC with RR18x with SPO2 96%. No change in CV/NV status.
[2017-02-20 06:03] LABS: ALBUMIN 2.7 g/dL (3.4-5.0); ANION GAP 13.3 mmol/L (8-16); BILIRUBIN - TOTAL 1.1 mg/dL (0.2-1.3); CALCIUM 7.7 mg/dL (8.5-10.1); CARBON DIOXIDE 25.6 mmol/L (21.0-32.0); CREATININE - SERUM 1.2 mg/dL (0.6-1.3); POTASSIUM - SERUM 3.9 mmol/L (3.5-5.1); PROTEIN - SERUM 5.6 g/dL (6.4-8.2)
--- NOTE | 2017-02-20 11:29 | OP ---
PATIENT NAME: ANTONIETA UREÑA MEDICAL RECORD: [id number] :39 [place] ADMISSION DATE:02/17/17 SURGEON: ANDRAE AGRAWAL MD OPERATION DATE: 02/17/17 SURGEON: Andrae Agrawal M.D. ANESTHESIA: General endotracheal anesthesia by Dr. Stanley. PROCEDURE: Aortocoronary artery bypass utilizing left internal thoracic, left anterior descending artery, reverse saphenous vein segment sequential off of first diagonal sequential obtuse marginal coronary artery and reverse saphenous vein graft to the posterior descending coronary artery. 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 INDICATION FOR OPERATION: Angina pectoris. FINDINGS OF OPERATION: The greater saphenous vein from the right leg was of good quality for grafting. The left internal thoracic was also of good quality for grafting. The target vessels were severely and diffusely diseased however, the caliber was adequate for grafting. ESTIMATED BLOOD LOSS: Cell Saver was used. PROCEDURE IN DETAIL: After informed consent, adequate preoperative medication, evaluation, the patient was brought to the operating room and placed stable in the supine position. After induction of general endotracheal anesthesia and application of appropriate monitoring devices, the chest, neck, abdomen, and both legs were prepped and draped in sterile field utilizing Betadine scrub, alcohol, and Betadine solution. Betadine impregnated drape was also used. Saphenous vein was harvested from the right leg through a small transverse incision. The leg was closed over drains utilizing 3-0 Vicryl and skin tesfaye. A median sternotomy incision was used. Dissection was carried down to the fascia. Hemostasis maintained with electrocautery. The left internal thoracic was taken down and prepared for grafting. The patient given calculated doses of heparin, cannulated in standard fashion, utilizing one aortic, one and two stage cannula in the atrium and inferior vena cava. The patient placed on cardiopulmonary bypass, cooled to 32 degrees Centigrade. A crossclamp was placed just proximal to the aortic cannula, placing cardioplegic solution through the aortic root. The patient was given a cold induction and cold maintenance. The patient given cold intermittent cardioplegic solution throughout the procedure either through the root, the grafts or a combination of both. The first vessel to be grafted was the posterior descending. The posterior descending was not visualized on the surface of the myocardium therefore the right ventriculoatrial groove was dissected and the right coronary artery identified. This was traced down to the posterior descending coronary artery. The artery was opened and extended on to the posterior descending coronary artery. Utilizing a running 7-0 Prolene suture the anastomosis was formed. Hemostasis assured. The graft was then measured to the aorta and the proximal anastomosis fashioned utilizing a running 6-0 Prolene suture. Next, the first obtuse marginal was grafted end-to-side and utilized running 7-0 Prolene suture, OPERATIVE REPORT [id number] ANTONIETA UREÑA grafts was measured to the first diagonal and a [id number] anastomosis fashioned utilizing running 7-0 Prolene suture. Graft was measured back to the aorta and the proximal anastomosis fashioned utilizing running 6-0 Prolene suture. Next, left internal thoracic was brought through a hole in the pericardium, sutured to the left anterior descending artery, and utilized running 8-0 Prolene suture. Pedicle was attached to the epicardium with 6-0 Prolene suture. All maneuvers to remove trapped air performed. The patient given warm cardioplegia, reperfused in controlled reperfusion. The patient rewarmed to 37 degrees Centigrade. Two atrial and ventricular pacing wires were placed on the heart, brought out through the epigastric area. The patient was weaned off of bypass. After being stable off of bypass, was given calculated dose of protamine to reverse the heparin. Hemostasis was assured. A #40 right angle and #36 chest tubes brought in through the epigastric area and placed in the mediastinum. Separate left pleural tubes connected to underwater seal and suction. The chest was again irrigated. Instrument count and sponge count were correct times two. The chest was closed in layers utilizing #7 wire on the sternum, #2 Vicryl on the linea alba and pectoralis fascia, subcutaneous tissue approximated with 3-0 Vicryl and the skin approximated with 3-0 subcuticular Vicryl. Sterile dressings were applied. The patient tolerated the procedure well and was transferred to cardiovascular recovery in satisfactory condition . ANDRAE AGRAWAL MD at 1129 CC: [id number] DICTATION DATE: 02/17/17 1500 CHIEF INFORMATION SECURITY OFFICER: 02/18/17 1206 ADM IN [place] [id number] [place] [address]
--- NOTE | 2017-02-20 14:08 | NUR ---
0715-RECIEVED PER FLOW SHEET-NOTED PT SUPINE IN BED-HOB ELEVATED TO 30-APPEARS TO BE ASLEEP-NOTED PACED RHYTHM ON MONITOR-O2 AT 5L STEEPING PRESS TENDER 0830-R LEG DRG CHANGED -NOTED SEROUS DRAINAGE-TO ALL DRG SITES-SANG DRAINAGE TO UPPER J JARAMILLO SITE-SMALL AMOUNT-PRESSURE DRG APPLIED 0850-ASSISTED WITH PHYSICAL THERAPY AT [facility]-PLACED ON TELEMETRY-AMBULATED ON 5L STEEPING PRESS TENDER-TOLERATED WELL 1030-DR AGRAWAL AT BEDSIDE-DRG TO PACER WIRE SITE CHANGED AND EXT TEMP PACER DISCONTINUED-WIRES INTACT AND WRAPPED PER PROTOCOL-C/O PAIN TO COCCYX AREA-NOTED STAGE 1 -STRAIGHT LINE-THIN 1 INCH IN LENGTH-STATES OCCURRED AT HOME FROM RECLINER-AREA CLEANED AND DUODRM APPLIED 1200-FAMILY AT [facility] 1330-PT AT BEDSIDE
--- NOTE | 2017-02-20 14:18 | NUR ---
1345-ASSISTED TO BED R LEG DRG CHANGED-SEROUS DRAINAGE TO ALL SITES-SANG TO UPPER J JARAMILLO INSERTION SITE-SMALL AMOUNT 1415-RESP RX IN PROGRESS
--- NOTE | 2017-02-20 19:15 | NUR ---
RECEIVED CARE OF PT, ASSESSMENT PER FLOWSHEET. PT ALERT AND ORIENTED X 4, SITTING UP IN BED IN NO APPARENT DISTRESS, O2 AT 3L NC, BREATH SOUNDS CLEAR WITH DIM BASES, HR PACED ON CM PER PPM, MIDSTERNAL AND SUBSTERNAL DRESSINGS CDI, TPM WIRES ROLLED UP AND SECURED, PPP. RT LEG DRESSINGS INTACT, PT DENIES PAIN OR ANY NEEDS AT THIS TIME. BED LOW, CALL LIGHT IN REACH, VSS.
--- NOTE | 2017-02-20 21:10 | NUR ---
NO VISITORS PRESENT AT THIS TIME, PT PULLED UP IN BED AND POSITIONED FOR COMFORT SUPPORTED WITH PILLOWS, VSS.
--- NOTE | 2017-02-20 23:00 | NUR ---
REASSESSMENT PER FLOWSHEET, NO ACUTE CHANGES NOTED AT THIS TIME. RT LEG DRESSINGS WITH SEROSANGUINOUS DRAINAGE NOTED-CHANGED PER MD ORDER, PARTIAL LINEN CHANGE DONE, PULLED UP IN BED AND POSITIONED FOR COMFORT. HR REMAINS PACED ON CM PER PPM, VSS.
[2017-02-21] VITALS (24 sets, daily range): BP systolic 93–126; BP diastolic 47–68
--- NOTE | 2017-02-21 00:48 | NUR ---
PT RESTING IN BED WITH EYES CLOSED, VSS, CONT POC.
--- NOTE | 2017-02-21 03:05 | NUR ---
PULLING 1000 ON IS WITH GOOD INSPIRATORY EFFORT, ICE WATER PROVIDED PER REQUEST, DENIES ANY OTHER NEEDS. VSS
--- NOTE | 2017-02-21 04:25 | NUR ---
SUBSTERNAL AND RT LEG DRESSINGS CHANGED PER MD ORDER, PT TOLERATED WITHOUT DIFFICULTY, COMPLETE LINEN CHANGE DONE, DENIES ANY OTHER NEEDS.
--- NOTE | 2017-02-21 05:50 | NUR ---
AM LAB DRAWN FROM CVL AND SENT OVER PER MD ORDER. PT POSITIONED FOR COMFORT, DENIES ANY NEEDS AT THIS TIME, VSS.
[2017-02-21 06:11] LABS: HEMATOCRIT 22.5 % (42.0-54.0); HEMOGLOBIN 7.6 g/dL (13.5-17.5); MCH 30.2 pg (26.0-34.0); MCHC 33.8 g/dL (31.0-37.0); MCV 89.3 fL (80.0-100.0); MEAN PLATELET VOLUME 9.7 fL (7.4-10.4); RBC 2.52 10x6/uL (4.20-6.10); RDW 14.3 % (11.5-14.5)
[2017-02-21 06:17] LABS: WBC 8.5 10x3/uL (4.8-10.8)
[2017-02-21 06:33] LABS: ALBUMIN 2.6 g/dL (3.4-5.0); ALKALINE PHOSPHATASE 48 U/L (46-116); ALT (SGPT) 16 U/L (10-68); BILIRUBIN - TOTAL 1.02 mg/dL (0.2-1.3); CALC OSMOLALITY 282 mosm/kg (275-300); CARBON DIOXIDE 24.9 mmol/L (21.0-32.0); CHLORIDE - SERUM 105 mmol/L (98-107); GLUCOSE 114 mg/dL (74-106); POTASSIUM - SERUM 3.6 mmol/L (3.5-5.1); PROTEIN - SERUM 5.6 g/dL (6.4-8.2); SODIUM 140 mmol/L (136-145); UREA NITROGEN 22 mg/dL (7-18); eGFR NON AFRICAN AMERICAN 77 mL/min (90-120)
--- NOTE | 2017-02-21 06:42 | NUR ---
5 MEQ OF KCL INITIATED PER MD SLIDING SCALE TO TREAT K+ OF 3.6 ON AM LAB.
--- NOTE | 2017-02-21 12:58 | NUR ---
DR AGRAWAL AT [address] D/C'D PER PROTOCOL-TIP INTACT AND HEMOSTASIS OBTAINED-ON ROOM AIR-95%-DISCHARGE INSTRUCTIONS GIVEN TO AND PT AND REVIEWED--RADHA
--- NOTE | 2017-02-21 19:15 | NUR ---
RESUMED CARE OF PT, ASSESSMENT PER FLOWSHEET. PT SITTING UP IN CHAIR IN NO APPARENT DISTRESS VISITING WITH FAMILY. HR V-PACED ON CM PER PPM AT A RATE OF 82, BREATH SOUNDS DIMINISHED IN BASES, PPP, DRESSINGS PER FLOWSHEET AND CDI, VSS, PT AND FAMILY DENY ANY NEEDS AT THIS TIME.
--- NOTE | 2017-02-21 21:10 | NUR ---
NO VISITORS PRESENT AT THIS TIME. HELPED PT BACK TO BED WITH MINIMAL ASSIST, ICE WATER PROVIDED PER REQUEST, PULLING AROUND [id number] ON IS WITH GOOD INSPIRATORY EFFORT AND STRONG COUGH NOTED.
--- NOTE | 2017-02-21 22:39 | NUR ---
POSITIONED PT UP IN BED FOR COMFORT, EMPTIED 150CC OF LOURDES URINE FROM URINAL, PT DENIES ANY OTHER NEEDS AT THIS TIME, VSS, CALL LIGHT IN REACH, CONT TO MONITOR.
[2017-02-22] VITALS (24 sets, daily range): BP systolic 93–135; BP diastolic 45–74
--- NOTE | 2017-02-22 01:50 | NUR ---
PT RESTING IN CHAIR WATCHING TV, ICE WATER PROVIDED PER REQUEST, CALL LIGHT IN REACH, VSS.
--- NOTE | 2017-02-22 04:25 | NUR ---
BACK FROM RADIOLOGY FOR PA AND LAT CXR, CVICU MONITORS RE-ESTABLISHED, VSS. RT LEG DRESSINGS CHANGED PER MD ORDER, SITTING UP IN W/C PER PT REQUEST, DENIES ANY NEEDS AT THIS TIME.
--- NOTE | 2017-02-22 05:21 | NUR ---
PT RESTING IN W/C WITH EYES CLOSED, VSS, CONT POC.
[2017-02-22 06:15] LABS: HEMATOCRIT 24.4 % (42.0-54.0); HEMOGLOBIN 8.2 g/dL (13.5-17.5); MCH 30.1 pg (26.0-34.0); MCHC 33.6 g/dL (31.0-37.0); MCV 89.7 fL (80.0-100.0); RBC 2.72 10x6/uL (4.20-6.10); RDW 14.2 % (11.5-14.5)
[2017-02-22 06:16] LABS: WBC 13.9 10x3/uL (4.8-10.8)
[2017-02-22 06:32] LABS: ALBUMIN 2.8 g/dL (3.4-5.0); ANION GAP 16.4 mmol/L (8-16); BILIRUBIN - TOTAL 1.21 mg/dL (0.2-1.3); CALCIUM 8.4 mg/dL (8.5-10.1); CARBON DIOXIDE 23.4 mmol/L (21.0-32.0); CREATININE - SERUM 1.1 mg/dL (0.6-1.3); POTASSIUM - SERUM 3.8 mmol/L (3.5-5.1); PROTEIN - SERUM 6.4 g/dL (6.4-8.2)
--- NOTE | 2017-02-22 07:00 | NUR ---
5 MEQ OF KCL INITIATED TO TREAT K+ OF 3.8 ON AM LAB PER MD SLIDING SCALE.
--- NOTE | 2017-02-22 07:30 | NUR ---
RECIEVED PT FOR CARE. PT SITTING UP IN WHEELCHAIR IN ROOM. PT ALERT AND ORIENTED. CALL LIGHT WITHIN REACH. WATCHING TELEVISION. ASSESSMENT COMPLETED. DENIES PAIN AT THIS TIME. CALL LIGHT WITHIN REACH. PT SET UP WITH BREAKFAST TRAY. NO OTHER NEEDS AT THIS TIME.
--- NOTE | 2017-02-22 08:46 | NUR ---
PT ASSISTED BACK TO BED. CALL LIGHT WITHIN REACH. RIGHT UPPER THIGH DRESSING SATURATED WITH SEROUS FLUID. CHANGED PER MD ORDERS. PT TOLERATED WELL.
--- NOTE | 2017-02-22 08:49 | NUR ---
Nutrition follow-up: Diet advanced to low sodium PO intake ~50% of meals Labs reviewed Wt: 215# RDN following.
--- NOTE | 2017-02-22 10:20 | NUR ---
PHYISCAL THERAPY AT BEDSIDE. PT AMBULATED. TOLERATED WELL. ASSISTED BACK TO ROOM AND SITTING UP ON SIDE OF BED.
--- NOTE | 2017-02-22 12:37 | NUR ---
PT'S FAMILY AT BEDSIDE FOR VISITATION.
--- NOTE | 2017-02-22 13:13 | NUR ---
PT AMBULATED WITH PHYSICAL THERAPY AND THEN ASSISTED BACK TO BED.
--- NOTE | 2017-02-22 16:27 | NUR ---
PT HAD COMPLETE BATH AND LINEN CHANGE. TOLERATED WELL. VSS AT THIS TIME. PT NOT TOLERATING TAPE CHANGES WITH DRESSING CHANGE TO RIGHT UPPER THIGH DUE TO SENSITIVE SKIN. USED 4X4s AND SPANDAGE.
--- NOTE | 2017-02-22 19:25 | NUR ---
REC'D TO CARE, AT BS - LEAVING FOR THE NIGHT. UPDATE GIVEN AND QUESTIONS ANSWERED. VSS. PT REPOSITIONED UP IN BED FOR COMFORT. C/L IN REACH. ALARMS ON. URINAL AT BEDSIDE. PT DENIES PAIN OR NEEDS.
--- NOTE | 2017-02-22 21:04 | NUR ---
NO VISITORS. PO MEDS GIVEN PER MD ORDER. PT DENIES NEEDS.
--- NOTE | 2017-02-22 23:00 | NUR ---
REASSESSMENT PER FLOWSHEET, NO ACUTE CHANGES. VSS. NO SIGN OF DISTRESS.
[2017-02-23] VITALS (12 sets, daily range): BP systolic 96–134; BP diastolic 45–67
--- NOTE | 2017-02-23 01:00 | NUR ---
UP TO BR WITH ASSIST. REPORTS "GOOD BM", LOUISE-CARE PER PT, PADS ON BED CHANGED. BACK TO BED, DSGS TO R LEG OFF FOR NOW, PAD UNDER R LEG. ALARMS ON AND C/L IN REACH.
--- NOTE | 2017-02-23 03:09 | NUR ---
REASSESSMENT PER FLOWSHEET, NO ACUTE CHANGES. VSS. C/L IN REACH.
--- NOTE | 2017-02-23 04:00 | NUR ---
TO RADIOLOGY VIA W/C AND BACK TO ROOM, REMAINS UP IN W/C PER PT REQUEST. VSS. C/L IN REACH.
--- NOTE | 2017-02-23 04:44 | NUR ---
BACK TO BED.
[2017-02-23 06:09] LABS: HEMOGLOBIN 8.2 g/dL (13.5-17.5); MCH 29.7 pg (26.0-34.0); MCHC 32.8 g/dL (31.0-37.0); MCV 90.6 fL (80.0-100.0); RBC 2.76 10x6/uL (4.20-6.10); RDW 14.4 % (11.5-14.5)
[2017-02-23 06:22] LABS: CALC OSMOLALITY 284 mosm/kg (275-300); CALCIUM 7.8 mg/dL (8.5-10.1); CARBON DIOXIDE 23.3 mmol/L (21.0-32.0); CHLORIDE - SERUM 109 mmol/L (98-107); GLUCOSE 104 mg/dL (74-106); POTASSIUM - SERUM 3.7 mmol/L (3.5-5.1); SODIUM 142 mmol/L (136-145); UREA NITROGEN 19 mg/dL (7-18); WBC 9.8 10x3/uL (4.8-10.8); eGFR NON AFRICAN AMERICAN 77 mL/min (90-120)
--- NOTE | 2017-02-23 07:00 | NUR ---
PT REPORT REC'D, PT CARE ASSUMED, PT [id number] SITTING UP IN BED, NO C/O PAIN. VSS, ROOM AIR. MIDSTERNAL INCISION OPEN TO AIR, NO DRAINAGE NOTED. SUBSTERNAL PREVIOUS CT AND TPM WIRES SITES, OPEN TO AIR, NO DRAINAGE NOTED. RIGHT LEG HARVEST SITES, DRESSING CDI. UP TO BATHROOM WITH ASSISTANCE. LEFT SUBCLAVIAN CVL S/L'ED, DRESSING CDI. SHIFT ASSESSMENT COMPLETED, SEE FLOW SHEET. ROOM FREE OF CLUTTER, CALL LIGHT IN REACH, WILL CONTINUE TO MONITOR PT.
--- NOTE | 2017-02-23 08:30 | NUR ---
TRANSFERRED PT FROM BED TO CHAIR, PT TOLERATED WELL, WILL CONTINUE TO MONITOR PT.
--- NOTE | 2017-02-23 09:06 | NUR ---
PT FAMILY AT THE BEDSIDE, ALL QUESTIONS ANSWERED, VSS, WILL CONTINUE TO MONITOR PT.
[2017-02-23] MEDS ORDERED: LOPRESSOR25 MG PO (10:47)
[2017-02-23] MEDS ORDERED: HEMOCYTE PLUS C1 CAP PO (10:47)
[2017-02-23] MEDS ORDERED: HYDROCODONE-APA1 TAB PO (10:48)
--- NOTE | 2017-02-23 11:19 | NUR ---
SPOKE WITH DON AT DR. YARBROUGH'S OFFICE, FOLLOW UP APPT SCHEDULED FOR 03/02/17 AT 1321
--- NOTE | 2017-02-23 11:20 | NUR ---
SPOKE WITH JOES AT DR. JONES'S OFFICE, FOLLOW UP APPT SCHEDULED FOR 03/02/17 AT 1000.
--- NOTE | 2017-02-23 11:22 | NUR ---
CM met with patient yesterday mid morning. DC plans unchanged. He will return home with his . No needs identified or verbalized.
--- NOTE | 2017-02-23 12:04 | NUR ---
DC'ED LEFT SUBCLAVIAN CVL, 4X4'S APPLIED, PRESSURE APPLIED, TEGADERM APPLIED, WILL CONTINUE TO MONITOR PT.
--- NOTE | 2017-02-23 12:15 | NUR ---
SHANAE MCCLURE RN AT THE BEDSIDE SPEAKING WITH PT AND PTS .
--- NOTE | 2017-02-23 12:25 | NUR ---
SHOWED PT AND PTS HOW TO CHANGE DRESSING ON RIGHT LEG, PT AND VERBALIZED UNDERSTANDING. DC PAPER WORK EXPLAINED, VERBALIZED UNDERSTANDING FOR F/U APPTS AND CARE AFTER D/C.
--- NOTE | 2017-02-23 12:30 | NUR ---
WHEELED PT OUT TO DAUGHTERS CAR, PT VERBALIZED UNDERSTANDING OF NO DRIVING FOR 2WEEKS.
== END 2017-02-23 12:30 | disposition home or self-care (01) | DRG 236 ==
LOC: D.SDCHOLD 05:47 → D.CVICU 05:47 → D.SDCHOLD 07:30 → D.CVICU 14:20
PROVIDERS: ADMIT Internal Medicine Cardiovascular Disease
PROC: 021209W Bypass Coronary Artery, Three Arteries from Aorta with Autologous Venous Tissue, Open Approach (ICD-10-PCS; 2017-02-17)
PROC: 06BP0ZZ Excision of Right Saphenous Vein, Open Approach (ICD-10-PCS; 2017-02-17)
PROC: 5A1221Z Performance of Cardiac Output, Continuous (ICD-10-PCS; 2017-02-17)
PROC: B246ZZ4 Ultrasonography of Right and Left Heart, Transesophageal (ICD-10-PCS; 2017-02-17)
PROC: 02100AC Bypass Coronary Artery, One Artery from Thoracic Artery with Autologous Arterial Tissue, Open Approach (ICD-10-PCS; principal; 2017-02-17 07:30)
DX: I25.118 Atherosclerotic heart disease of native coronary artery with other forms of angina pectoris (principal); I44.2 Atrioventricular block, complete; E78.00 Pure hypercholesterolemia, unspecified; I10 Essential (primary) hypertension; Z95.0 Presence of cardiac pacemaker; H40.9 Unspecified glaucoma; E78.5 Hyperlipidemia, unspecified

== ENCOUNTER → 2017-03-11 09:16 | Outpatient (CLI) | payer MEDICARE, BC ==
[2017-02-18 12:42] VITALS: BMI 35.8
[~2017-03-11 09:16] MED LIST changes: +HEMOCYTE PLUS C1 CAP PO; +HYDROCODONE-APA1 TAB PO; +LOPRESSOR25 MG PO
[2017-03-11 10:07] LABS: HEMATOCRIT 38.5 % (42.0-54.0); HEMOGLOBIN 11.8 g/dL (13.5-17.5); MCH 28.5 pg (26.0-34.0); MCHC 30.6 g/dL (31.0-37.0); MEAN PLATELET VOLUME 9.9 fL (7.4-10.4); RBC 4.14 10x6/uL (4.20-6.10); RDW 15.1 % (11.5-14.5); WBC 6.4 10x3/uL (4.8-10.8)
[2017-03-11 10:30] LABS: CALC OSMOLALITY 279 mosm/kg (275-300); CALCIUM 8.5 mg/dL (8.5-10.1); CARBON DIOXIDE 20.4 mmol/L (21.0-32.0); CHLORIDE - SERUM 106 mmol/L (98-107); CREATININE - SERUM 0.9 mg/dL (0.6-1.3); GLUCOSE 97 mg/dL (74-106); POTASSIUM - SERUM 4.3 mmol/L (3.5-5.1); SODIUM 140 mmol/L (136-145); UREA NITROGEN 14 mg/dL (7-18); eGFR NON AFRICAN AMERICAN 87 mL/min (90-120)
== END | disposition home or self-care (01) ==
LOC: D.RAD 08:00
PROVIDERS: Internal Medicine Cardiovascular Disease
DX: Z95.1 Presence of aortocoronary bypass graft (principal); J90 Pleural effusion, not elsewhere classified; D64.9 Anemia, unspecified

== ENCOUNTER → 2017-12-06 12:37 | Outpatient (CLI) | payer MEDICARE, BC ==
[2017-02-18 12:42] VITALS: BMI 35.8
== END | disposition home or self-care (01) ==
LOC: D.US 12:37
DX: I65.23 Occlusion and stenosis of bilateral carotid arteries (principal)

== ENCOUNTER → 2017-12-09 13:02 | Outpatient (CLI) | payer MEDICARE, BC ==
[2017-02-18 12:42] VITALS: BMI 35.8
== END | disposition home or self-care (01) ==
LOC: D.CT 13:02
DX: I65.23 Occlusion and stenosis of bilateral carotid arteries (principal)

== ENCOUNTER → 2019-11-29 13:45 | Outpatient (CLI) | payer MEDICARE, BC ==
[2017-02-18 12:42] VITALS: BMI 35.8
== END | disposition home or self-care (01) ==
LOC: D.US 11-28 11:00
PROVIDERS: ATTEND Internal Medicine Cardiovascular Disease
DX: I65.23 Occlusion and stenosis of bilateral carotid arteries (principal); I25.10 Atherosclerotic heart disease of native coronary artery without angina pectoris